=== PATIENT | male | born 1945 | race Caucasian/White ===

== ENCOUNTER 2016-10-24 09:48 | Emergency (ER) | payer MEDICARE ==
[2016-10-24 10:21] LABS: Hematocrit 46 % (42-52); Hemoglobin 15.4 g/dl (14.0-18.0); Mean Corpuscular HGB Conc 34 g/dl (31-36); Mean Corpuscular Hemoglobin 30 pg (27-31); Mean Corpuscular Volume 90 fL (80-94); Mean Platelet Volume 8 um3 (7.4-10.4); Red Blood Count 5.11 10^6/ul (4.0-5.4); Red Cell Distribution Width 15 % (10.5-15); White Blood Count 11.2 10^3/ul (3.5-10.8)
[2016-10-24] MEDS ORDERED: Albuterol/Ipratropium NEB.SOL* Albuterol 2.5 MG/Ipratropium 0.5 MG 3 ML INH ONE (10:24)
--- NOTE | 2016-10-24 10:42 | RAD ---
INDICATION: Chest pain. COMPARISON: Comparison is made with prior chest x-ray study from April 26, 2013. TECHNIQUE: A portable view of the chest was obtained. FINDINGS: Cardiac and mediastinal contours appear to be within normal limits. The lungs are clear. No pleural effusion is seen. IMPRESSION: NO EVIDENCE FOR ACUTE DISEASE.
[2016-10-24 10:51] LABS: ALT 21 U/L (7-52); AST 22 U/L (13-39); Albumin 3.6 g/dL (3.2-5.2); Alkaline Phosphatase 85 U/L (34-104); Anion Gap 5 mmol/L (2-11); BUN/Creatinine Ratio 14.4 (8-20); Blood Urea Nitrogen 17 mg/dL (6-24); CO2 Carbon Dioxide 30 mmol/L (22-32); Calcium 9.4 mg/dL (8.6-10.3); Chloride 101 mmol/L (101-111); Creatine Kinase 35 U/L (10-223); EGFR African American 78.3 (>60); EGFR Non-African American 60.9 (>60); Globulin 3.4 g/dL (2-4); Glucose 144 mg/dL (70-100); Lipase < 10 U/L (11.0-82.0); Sodium 136 mmol/L (133-145)
[2016-10-24 11:05] LABS: Troponin I 0.04 ng/mL (<0.04)
[2016-10-24] MEDS ORDERED: Iohexol 300* (CONTRAST) 10 ML SDV IV ONE (11:29)
[2016-10-24] MEDS ORDERED: Ondansetron INJ* 2 MG/ML VIAL IV PRN (11:46)
[2016-10-24] MEDS ORDERED: NS 0.9% 1000 ML* 1,000 ML IV SCH (12:00)
[2016-10-24] MEDS: Acetaminophen TAB* 325 MG PO PRN ×2 (12:08→16:11)
--- NOTE | 2016-10-24 13:42 | RAD ---
INDICATION: Diffuse abdominal pain. Coronary artery disease. COMPARISON: CT abdomen pelvis December 28, 2011 TECHNIQUE: Axial source images were obtained from the hemidiaphragms to the symphysis pubis following administration of oral and intravenous contrast. 121 mL Omnipaque 300 was utilized. Coronal and sagittal reconstructed images were acquired. Lung bases: The lung bases are unchanged with a stable subcentimeter nodule. A there may be a tiny central calcification. A granulomatous considered statistically most likely. Liver: The liver is normal in size. There are no masses. There is mild hepatic steatosis. There is no ductal dilatation. Gallbladder: There is a tiny calcification which appears adherent to the wall the gallbladder. This measures approximately 1 mm and is unchanged. There is no evidence of wall thickening or pericholecystic fluid. Spleen: The spleen is normal in size. There are no masses. Pancreas: There is no focal pancreatic mass or ductal dilatation. There is fatty infiltration Adrenal glands: Suspect mild, bilateral, adrenal hyperplasia, unchanged. Kidneys: The kidneys are normal in size and position. There are prompt nephrograms and there is prompt excretion bilaterally. There are no new renal findings. There are bilateral parapelvic cysts. There is no evidence of nephrolithiasis. Adenopathy: There is no evidence of adenopathy by size criteria. Fluid collections: There are no free or localized fluid collections. Vessels:There are atherosclerotic changes involving the aorta and iliac vessels. There is no focal aneurysm. There is mild ectasia. The IVC appears normal. GI tract: There is apparent mild thickening of the gastric antrum. Consider gastritis in the appropriate clinical setting. The small bowel and colon are unremarkable. There is no obstruction. There is no free air. Pelvic organs: The prostate is enlarged Bladder: There are no bladder masses. Abdominal and pelvic soft tissues: There is a fat-containing left inguinal hernia. Osseous structures: There are no acute osseous findings. Other: None IMPRESSION: 1. Suspect antral gastritis. Suggest correlation with clinical presentation. 2. Mild fatty infiltration of the liver and pancreas 3. Tiny adherent gallstone, unchanged. 4. Suspect bilateral adrenal hyperplasia, unchanged. 5. Bilateral renal parapelvic cysts 6. Left internal hernia containing only fat. 7. BPH. 8. Granuloma left lung base, unchanged.
[2016-10-24 16:28] VITALS: BP 138/105
--- NOTE | 2016-10-24 18:49 | CONS ---
EMERGENCY DEPARTMENT CONSULTATION: DATE OF CONSULT: 10/24/16 PRIMARY CARE PROVIDER: Not listed. CONSULTING PROVIDER: GARCIA Mancilla REQUESTING PROVIDER: Dr. True Lux. SUPERVISING PHYSICIAN: Dr. Jason Delarosa. CHIEF COMPLAINT: Abdominal pain. HISTORY OF PRESENT ILLNESS: This is a 71-year-old gentleman with a history of chronic back pain, coronary artery disease, history of stable angina, hypertension, migraines, and COPD, who presented to the emergency department with complaints of abdominal pain, nausea, and vomiting over the last 3 to 4 days. The patient's pain has been mostly epigastric, but seems to have moved to his lower abdomen over the last day or two with associated nausea and vomiting. He describes the pain as sharp and cramping. He has been having regular bowel movements through this up until today where he started to have diarrhea. He has been afebrile at home. He reports some episodes of fleeting chest pain associated with his abdominal pain. PAST MEDICAL HISTORY: 1. Coronary artery disease, status post PCI x2 with a history of stable angina. 2. Hypertension. 3. Migraine headaches. 4. COPD. 5. Chronic back pain. HOME MEDICATIONS: The patient is not entirely clear on his home medications. Unable to provide an accurate list. SOCIAL HISTORY: The patient lives at home alone. He has a son that lives in [place]. The patient was recently about 3 years ago. REVIEW OF SYSTEMS: As noted above in the HPI, otherwise negative. PHYSICAL EXAM: Initial vitals: Temperature 99.1 degrees Fahrenheit, pulse 81 beats per minute, respiratory rate 18 per minute, oxygen saturation 93% on room air, blood pressure 154/76 mmHg. General: This is a very pleasant elderly gentleman, who appears mildly uncomfortably, lying comfortably in hospital bed. HEENT: Head is normocephalic, atraumatic. Mucous membranes are mildly dry. Cardiovascular: Heart has regular rate and rhythm with a subtle murmur best heard at right sternal border. Respiratory: Lungs are clear to auscultation without wheezes, crackles, or rhonchi. Abdomen: Abdomen is soft. Bowel sounds present, some diffuse tenderness to palpation. Extremities: No lower extremity edema. Psych: The patient is alert and appropriately oriented. DIAGNOSTIC STUDIES/LAB DATA: CBC shows white blood cell count of 11,200, hemoglobin 15.4 g/dL, platelet count of 170,000. INR 1.06. Comprehensive metabolic panel shows a sodium of 136 mmol/L, potassium 4.0, BUN 17, creatinine 1.18. Estimated GFR of 60.9. Lactic acid 1.3. Initial trop 0.04, repeat trop 4 hours later is 0.03. Imaging: Chest x-ray shows no acute process. EKG x2 is in normal sinus rhythm without ischemic changes. CT of the abdomen and pelvis suspects gastritis, no obvious colitis. No other acute process. ASSESSMENT AND PLAN: This is a 71-year-old gentleman with history of chronic back pain, coronary artery disease, hypertension, migraines, and chronic obstructive pulmonary disease, who presented with abdominal pain, nausea, and vomiting. Initial troponin was mildly elevated, but repeat troponin was normal without EKG changes. CT scan negative for acute pathology. Emergency department questioned whether admission is appropriate in this case. 1. Viral gastroenteritis - the patient's acute presentation seems to be consistent with a viral gastroenteritis, perhaps complicated by gastritis. The patient is able to take things orally at this time. I do not see an indication for admission. We will initiate a PPI. 2. Elevated troponin - this is likely demand related, secondary to hypovolemia. Repeat troponin is negative and EKG shows no acute changes. 3. Coronary artery disease - continue home medications. 4. Chronic obstructive pulmonary disease - continue home medications. DISPOSITION: The patient is appropriate for discharge home. His son is available to take care of him. Recommend starting a PPI. He is recommended to maintain a bland diet and anticipate spontaneous resolution of his symptoms in the next several days. GARCIA MANCILLA [id number]/[facility] [place] #: [id number] VALERIE
== END 2016-10-24 17:58 | disposition home or self-care (01) ==
LOC: ED 09:48 → MEDTELE 11:46 → UNDOADMOB 11:46 → ED 17:58 → UNDODISOB 17:58
DX: I25.10 Atherosclerotic heart disease of native coronary artery without angina pectoris (principal); R10.9 Unspecified abdominal pain; R07.9 Chest pain, unspecified; K76.0 Fatty (change of) liver, not elsewhere classified; I10 Essential (primary) hypertension; J44.9 Chronic obstructive pulmonary disease, unspecified; A08.4 Viral intestinal infection, unspecified; K80.80 Other cholelithiasis without obstruction
CPT/HCPCS: 36415; 71010; 74177; 80053; 82550; 82553; 83605; 83690; 83874; 83880; 84484; 85025; 85610; 85730; 93005; 94640; 96374; 99283; A9270-GY; G0378; J2405; Q9967